=== PATIENT | male | born 1985 | race Caucasian/White ===

== ENCOUNTER 2018-03-10 10:38 | Emergency (ER) | payer OTHER ==
--- NOTE | 2018-03-10 10:48 | EDPHY ---
H & P Stated Complaint: chest pain starting Friday Time Seen by Provider: 03/10/18 10:48 - Personal History Current Tetanus/Diphtheria Vaccine: Yes Current Tetanus Diphtheria and Acellular Pertussis (TDAP): Yes Tetanus Vaccine Date: < 10 years - Medical/Surgical History Hx Asthma: No Hx Chronic Respiratory Disease: No Hx Diabetes: No Hx Cardiac Disease: No Hx Renal Disease: No Hx Cirrhosis: No Hx Alcoholism: No Hx HIV/AIDS: No Hx Splenectomy or Spleen Trauma: No Other PMH: eye sx - Social History Smoking Status: Current every day smoker Constitutional: Initial Vital Signs Temperature (C) 36.8 C 03/10/18 10:41 Heart Rate 87 03/10/18 10:41 Respiratory Rate 18 03/10/18 10:41 Blood Pressure 130/88 H 03/10/18 10:41 O2 Sat (%) 98 03/10/18 10:41 O2 Delivery Mode Room Air Allergies/Adverse Reactions: No Known Allergies Allergy (Unverified 03/10/18 10:41) Home Medications: Medication Instructions Recorded Ibuprofen [Motrin] 800 mg PO Q8 #20 tab 03/10/18 Medical Decision Making - Diagnostics Imaging Results: Imaging Impressions Chest X-Ray 03/10/18 10:57 Impression: Lung hyperexpansion and perihilar bronchitis/sequela of reactive airways' disease. Imaging: I viewed and interpreted images myself ED Course/Re-evaluation: CHIEF COMPLAINT: Chest pain when breathing HISTORY OF PRESENT ILLNESS: The patient is a 32 y/o male complaining of a sharp left-side chest pain while taking a deep breath, onset Friday night, 3 days ago. This pain is dull when not taking a deep breath. He did drink a cup of coffee this morning and a portion of a [email or web address] energy drink. Admits to smoking. Denies recent illness, trauma, shortness of breath, abdominal pain, numbness, paresthesias. REVIEW OF SYSTEMS: A 10 point review of systems was performed and is negative with the exception of the elements mentioned in the history of present illness. PHYSICAL EXAM: HR, BP, O2 Sat, RR. Temp noted General Appearance: Anxious, alert, well hydrated, appropriate, and non-toxic appearing. Head: Atraumatic without scalp tenderness or obvious injury Eyes: Pupils equal, round, reactive to light and accommodation, EOMI, no trauma , no injection. Ears: Clear bilaterally, no perforation, normal landmarks Nose: Atraumatic, no rhinorrhea, clear. Throat: There is no erythema or exudates, no lesions, normal tonsils, mucus membranes moist. Neck: Supple, nontender, no lymphadenopathy. Respiratory: No retractions, no distress, no wheezes, and no accessory muscle use. Lungs are clear to auscultation bilaterally. Cardiovascular: Regular rate and rhythm, no murmurs, rubs, or gallops. Bilateral carotid, radial, dorsalis pedis, and posterior tibial pulses intact. Good capillary refill all extremities. Gastrointestinal: Abdomen is soft, nontender, non-distended, no masses, no rebound, no guarding, no peritoneal signs. Musculoskeletal: Normal active ROM of all extremities, atraumatic. Neurological: Alert, appropriate, and interactive. Nonfocal neuro. Skin: No rashes, good turgor, no nodules on palpation. Past medical history: Denies Past surgical history: Eye surgery Family history: Denies Social history: Single, employed, lives in [place] DIAGNOSTICS/PROCEDURES/CRITICAL CARE TIME: The 12 lead EKG was interpreted by myself as sinus rhythm with a rate of 92. See hard copy and/or "[email or web address]" electronic copy for interpretation. Chest x-ray: Normal DIFFERENTIAL DIAGNOSIS: The differential diagnosis for the patient's chest pain included but was not limited to pleuritic chest pain, anxiety, myocardial ischemia, pulmonary embolus , chest wall pain, pleural inflammation, and pulmonary infectious causes. MEDICAL DECISION MAKING: The patient is a 32 y/o male presenting with a sharp left-sided chest pain while taking a deep breath, onset Friday night, 3 days ago. This pain is not reproducible with palpation, but is sharp and pleuritic. He has a normal physical exam but is mildly anxious. EKG, chest x-ray, and labs ordered. 1050: I interpreted EKG as sinus rhythm with a rate of 92 1120: Patient's D-dimer is negative. 1144: I interpreted this patient's chest x-ray as normal. Patient's symptoms are consistent with pleuritic chest pain and anxiety. 1146: Reassessed patient and discussed laboratory and imaging studies. I have prescribed him Motrin for the pain. Return precautions provided; patient is comfortable with this plan. 1217: Troponin has finally resulted and is negative. Patient is safe to be discharged. - Data Points Laboratory Results: Laboratory Results 03/10/18 10:53 03/10/18 10:53 03/10/18 03/10/18 03/10/18 10:53 10:53 10:53 WBC 13.22 10^3/uL H 10^3/uL (3.80-9.50) RBC 5.19 10^6/uL 10^6/uL (4.40-6.38) Hgb 15.9 g/dL g/dL (13.7-17.5) Hct 46.7 % % (40.0-51.0) MCV 90.0 fL fL (81.5-99.8) MCH 30.6 pg pg (27.9-34.1) MCHC 34.0 g/dL g/dL (32.4-36.7) RDW 12.8 % % (11.5-15.2) Plt Count 233 10^3/uL 10^3/uL (150-400) MPV 9.7 fL fL (8.7-11.7) Neut % (Auto) 70.4 % % (39.3-74.2) Lymph % (Auto) 17.4 % % (15.0-45.0) [place] % (Auto) 10.1 % % (4.5-13.0) Eos % (Auto) 1.2 % % (0.6-7.6) Baso % (Auto) 0.5 % % (0.3-1.7) Nucleat RBC Rel Count 0.0 % % (0.0-0.2) Absolute Neuts (auto) 9.32 10^3/uL H 10^3/uL (1.70-6.50) Absolute Lymphs (auto) 2.30 10^3/uL 10^3/uL (1.00-3.00) Absolute Monos (auto) 1.33 10^3/uL H 10^3/uL (0.30-0.80) Absolute Eos (auto) 0.16 10^3/uL 10^3/uL (0.03-0.40) Absolute Basos (auto) 0.06 10^3/uL 10^3/uL (0.02-0.10) Absolute Nucleated RBC 0.00 10^3/uL 10^3/uL (0-0.01) Immature Gran % 0.4 % % (0.0-1.1) Immature Gran # 0.05 10^3/uL 10^3/uL (0.00-0.10) D-Dimer 0.34 ug/mLFEU ug/mLFEU (0.00-0.50) Sodium 145 mEq/L mEq/L (135-145) Potassium 4.0 mEq/L mEq/L (3.3-5.0) Chloride 104 mEq/L mEq/L (97-110) Carbon Dioxide 29 mEq/l mEq/l (22-31) Anion Gap 12 mEq/L mEq/L (8-16) BUN 11 mg/dL mg/dL (7-23) Creatinine 0.7 mg/dL mg/dL (0.7-1.3) Estimated GFR > 60 Glucose 80 mg/dL mg/dL (70-100) Calcium 9.1 mg/dL mg/dL (8.5-10.4) Troponin I < 0.012 ng/mL ng/mL (0.000-0.034) Departure - Departure Disposition: Home, Routine, Self-Care Clinical Impression: Pleuritic chest pain, Anxiety Condition: Good Instructions: Chest Pain (ED), Pleurisy (ED), Anxiety (ED) Additional Instructions: 1. Take Motrin as prescribed for pleuritic chest pain. 2. Follow-up with your primary doctor within 72 hours. 3. Return to the Emergency Department for fever, chest pain, shortness of breath , increasing pain or other worsening of condition. Referrals: [facility],. [Clinic] - As per Instructions Prescriptions: Ibuprofen [Motrin] 800 mg PO Q8 #20 tab Report Scribed for: Rafal Paez Report Scribed by: Valentina Zacarias Date of Report: 03/10/18 Time of Report: 10:51
--- NOTE | 2018-03-10 10:51 | CPEKG ---
Heart Rate: 92 RR Interval: 652 P-R Interval: 148 QRSD Interval: 106 QT Interval: 376 QTC Interval: 466 P [place]: 72 QRS [place]: 43 T Wave [place]: 67 EKG Severity - NORMAL ECG - EKG Impression: SINUS RHYTHM Electronically Signed By: Rafal Paez 10-Mar-2018 14:03:10
[2018-03-10 11:03] LABS: PLATELET COUNT 233 10^3/uL (150-400)
[2018-03-10 12:31] VITALS: BP 129/75
== END 2018-03-10 12:31 | disposition home or self-care (01) ==
DX: R07.89 Other chest pain (principal); F41.9 Anxiety disorder, unspecified; F17.200 Nicotine dependence, unspecified, uncomplicated